=== PATIENT | male | born 1960 | race Caucasian/White ===

== ENCOUNTER 2024-03-24 12:15 | Day surgery (SDC) | payer BC ==
[2024-03-20 11:15] LABS: BASOPHILS # (AUTO) 0.1 X10'3 (0-0.2); BASOPHILS % (AUTO) 0.8 % (0-1); EOSINOPHILS # (AUTO) 0.3 X10'3 (0-0.9); EOSINOPHILS % (AUTO) 2.9 % (0-6); HEMATOCRIT 40.6 % (42.0-52.0); HEMOGLOBIN 14.2 g/dl (14.0-17.9); LYMPHOCYTES # (AUTO) 3.7 X10'3 (1.1-4.8); LYMPHOCYTES % (AUTO) 41.1 % (21-51); MEAN CORPUSCULAR HEMOGLOBIN 32.6 PG (27.0-31.0); MEAN CORPUSCULAR HGB CONC 34.9 g/dL (33.0-36.5); MEAN CORPUSCULAR VOLUME 93.2 FL (78-98); MEAN PLATELET VOLUME 7.2 FL (7.4-10.4); MONOCYTES # (AUTO) 0.5 X10'3 (0-0.9); MONOCYTES % (AUTO) 5.6 % (2-12); NEUTROPHILS # (AUTO) 4.5 X10'3 (1.8-7.7); NEUTROPHILS % (AUTO) 49.6 % (42-75); PLATELET COUNT 279 X10'3 (140-440); RED BLOOD COUNT 4.35 X10'6 (4.70-6.10); RED CELL DISTRIBUTION WIDTH 13.7 % (11.5-14.5)
[2024-03-20 11:25] LABS: APTT 26 SECONDS (22-32); PROTHROMBIN TIME 10.2 SECONDS (9.0-12.0)
[2024-03-20 11:29] LABS: ALBUMIN 3.8 G/DL (3.4-5.0); ANION GAP 10 (8-16); BLOOD UREA NITROGEN 10 MG/DL (7-18); BUN/CREATININE RATIO 15.2 (10.0-20.0); CALCIUM 8.9 MG/DL (8.5-10.1); CHLORIDE 105 MMOL/L (99-107); CREATININE 0.66 MG/DL (0.60-1.10); GLUCOSE 134 MG/DL (70-104); SODIUM 142 MMOL/L (135-145); TOTAL CARBON DIOXIDE 27.5 MMOL/L (24-32); eGFR > 90 ML/MIN
[2024-03-20 11:30] LABS: CHOL/HDL RATIO 3.2 (0.00-4.99); CHOLESTEROL 135 MG/DL (0-200); HDL CHOLESTEROL 42 MG/DL (35-60); LDL CHOLESTEROL 69 MG/DL (50-100); TRIGLYCERIDES 220 MG/DL (20-135)
[2024-03-24] VITALS (9 sets, daily range): BP systolic 112–144; BP diastolic 64–95; PULSE 75–89; RESP 12–19; TEMP 98.2; O2SAT 92–95
[~2024-03-24] VITALS: Ht 172.7 cm; Wt 103.0 kg
[2024-03-24] MEDS ORDERED: METF-1203 PO (12:42)
[2024-03-24] MEDS ORDERED: AMLOD/BENAZP PO (12:42)
[2024-03-24] MEDS ORDERED: PANT20TA18 PO (12:42)
[2024-03-24] MEDS ORDERED: CARV6.253 PO (12:42)
[2024-03-24] MEDS ORDERED: NITR0.4T48 (12:42)
[2024-03-24] MEDS ORDERED: LOSA100T58 PO (12:42)
[2024-03-24] MEDS ORDERED: ATOR20TA66 PO (12:42)
[2024-03-24] MEDS ORDERED: ASPI-611 PO (12:42)
[2024-03-24] MEDS ORDERED: OMEG-42 PO (12:42)
[2024-03-24] MEDS: normal saline 1,000 ML IV SCH (13:20)
[2024-03-24] MEDS: diphenhydrAMINE 25mg capsule PO PRN (13:20)
[2024-03-24] MEDS: LORazepam 0.5 MG tablet PO PRN (13:20)
[2024-03-24] MEDS ORDERED: midazolam 1 mg/ML 2ml injection ONE (14:11)
[2024-03-24] MEDS ORDERED: LIDOcaine 1% (10mg/ml) 2ml vial ONE (14:11)
[2024-03-24] MEDS ORDERED: verapamil 2.5 mg/ml inj IV ONE (14:11)
[2024-03-24] MEDS ORDERED: fentaNYL/PF 50MCG/1 ML 2ML syringe ONE (14:12)
[2024-03-24] MEDS ORDERED: heparin 1,000unit/ml 10ml vial 10 ML ONE (14:12)
[2024-03-24] MEDS ORDERED: iohexol 350MG/ML 100ml bottle IV ONE (14:12)
[2024-03-24] MEDS ORDERED: nitroGLYCERIN 500mcg/5mL D5W 5 ML IV ONE (14:13)
== END 2024-03-24 18:00 | disposition home or self-care (01) ==
LOC: SSTAY O 12:15
PROVIDERS: ATTEND Student in an Organized Health Care Education/Training Program
DX: R94.39 Abnormal result of other cardiovascular function study (principal); I25.10 Atherosclerotic heart disease of native coronary artery without angina pectoris; E78.5 Hyperlipidemia, unspecified; E11.9 Type 2 diabetes mellitus without complications; I10 Essential (primary) hypertension; Z79.01 Long term (current) use of anticoagulants; Z79.899 Other long term (current) drug therapy
CPT/HCPCS: 36415; 80048; 80061; 85025; 85610; 85730; 93005; 93458; J1644; J2003; J2250; J3010; J3490; J7030; Q0163; Q9967; 99152; A6258; A6402; C1894